=== PATIENT | male | born 1985 | race Caucasian/White ===

== ENCOUNTER → 2021-12-08 12:51 | Outpatient (CLI) | payer BC, SELFPAY ==
[2021-12-09 16:27] LABS: H. pylori Breath Test Negative (Negative)
== END ==
PROVIDERS: PCP Physician Assistant; Visit Provider Nurse Practitioner Obstetrics & Gynecology
DX: R10.13 Epigastric pain (principal); Z31.41 Encounter for fertility testing
CPT/HCPCS: 83013

== ENCOUNTER 2022-10-02 08:35 | Day surgery (SDC) | payer BC, SELFPAY ==
[2022-09-30 10:12] VITALS: BMI 25.7
[2022-10-02 08:49] VITALS: BP 128/68; PULSE 75; RESP 18; TEMP 36.4; O2SAT 99
[2022-10-02 08:56] VITALS: BP 105/62; PULSE 75; RESP 16; TEMP 36.1; O2SAT 98
[2022-10-02 09:17] VITALS: O2SAT 99
--- NOTE | 2022-10-02 09:56 | HMH.SCOPE ---
Procedure: Date: 10/02/22 Patient Date of :: 1985 Procedure Performed:: Total colonoscopy with polypectomy using snare Indications:: Patient is a 37-year-old male referred for initial screening colonoscopy. His mother was diagnosed with colon cancer recently at age 58. Performing Provider:: Tolu Guzman MD Referring Provider:: Chelita Alvarado Sedation:: MAC sedation Procedure:: Patient history was obtained and appropriate physical examination was performed. Patient's medications and allergies were reviewed. Informed consent was obtained after explaining the benefits, alternatives, and risks of the procedure including, but not limited to, bleeding, perforation, missed lesions, and adverse reaction to anesthesia medications. Patient was transported to endoscopy procedure room. Patient was connected to monitoring devices. Throughout the procedure the patient's blood pressure, pulse, and oxygen saturations were monitored continuously. Patient identification and planned procedure were verified by the staff. Patient was positioned in lateral decubitus position. Digital anorectal exam was performed. Variable stiffness Olympus colonoscope was inserted and advanced under direct visualization to the cecum. Adequacy of the colonic preparation was noted. The colonoscope was advanced a short distance into the terminal ileum. The colonoscope was then slowly withdrawn while carefully examining the color, texture, anatomy, and integrity of the mucosoa circumferentially. Within the rectum retroflexion was performed. Colonoscope was then withdrawn. Findings:: Colonic preparation was fair as there was some particulate stool adherent to the colon particularly the right colon. At 50 cm from the anal verge there was a visible suture likely from previous pancreatic surgery. There were a couple of polyps at this location which were removed with cold cutting snare. These may be inflammatory. He had very rare diverticuli in the left colon. There were a couple of polyps at the rectosigmoid region removed with cold snare. Impression: Fair preparation with some adherent stool to the right colon Rare diverticuli Visible suture at 50 cm with a couple of polyps Rectosigmoid hyperplastic appearing polyps Recommendations:: Follow-up colonoscopy pending pathology. If any adenomatous component likely 3 years. If not likely would recommend 5-year recheck given the suboptimal preparation and family history. Complications:: None immediately apparent Estimated blood obtained (mL): 1
[2022-10-02 10:06] VITALS: BP 102/62; PULSE 98; RESP 17; O2SAT 99
[2022-10-02 10:16] VITALS: BP 107/79; PULSE 83; RESP 16; O2SAT 100
[2022-10-02 10:26] VITALS: BP 111/64; PULSE 76; RESP 17; O2SAT 100
== END 2022-10-02 10:26 | disposition home or self-care (01) ==
PROVIDERS: PCP Physician Assistant; Visit Provider Surgery
PROC: 0DJD8ZZ Inspection of Lower Intestinal Tract, Via Natural or Artificial Opening Endoscopic (ICD-10-PCS; CPT 45385; principal; 2022-10-02 09:30)
DX: Z12.11 Encounter for screening for malignant neoplasm of colon (principal); Z80.0 Family history of malignant neoplasm of digestive organs; D12.4 Benign neoplasm of descending colon
CPT/HCPCS: 45385

== ENCOUNTER → 2023-01-14 14:33 | Outpatient (CLI) | payer BC, SELFPAY ==
[2023-01-14 15:26] LABS: Alanine Aminotransferase 44 U/L (12-78); Albumin Level 4.7 g/dl (3.5-5.0); Alkaline Phosphatase 55 U/L (38-126); Amylase 46 U/L (30-110); Anion Gap 11.8 mEq/L (5-15); Aspartate Amino Transferase 31 U/L (17-59); Bilirubin,Total 0.7 mg/dl (0.2-1.3); Blood Urea Nitrogen 14 mg/dl (9-20); Calcium 9.2 mg/dl (8.4-10.2); Carbon Dioxide 32 mmol/L (22.0-30.0); Chloride 101 mmol/L (98-107); Estimated Glomerular Filt Rate 76 ml/min (>60); GFR (African American) 92 ML/MIN (>60); Globulin 2.4 g/dL (1.3-3.2); Glucose 93 mg/dl (74-100); Lipase 124 U/L (23-300); Potassium 4.8 mmoL/L (3.5-5.1); Sodium 140 mmol/L (136-145); Total Protein,Serum 7.1 g/dl (6.3-8.2)
== END ==
PROVIDERS: Visit Provider Surgery
DX: R10.9 Unspecified abdominal pain (principal)
CPT/HCPCS: 36415; 80053; 82150; 83690

== ENCOUNTER 2023-07-08 13:29 | Emergency (ER) | payer BC, SELFPAY ==
--- NOTE | 2023-07-08 14:06 | EXP.UTC ---
Discharge Plan Disposition Patient Disposition: Home, Self-Care Condition: Good Prescriptions Prescriptions: New oseltamivir [Tamiflu] 75 mg capsule 75 mg PO BID Qty: 10 0RF ondansetron 4 mg Tablet,Disintegrating 4 mg PO Q8H PRN (Reason: Nausea) Qty: 12 0RF Referrals Follow up/Referrals: Yusuf Schulz MD [Primary Care Provider] - See instructions Activity Restrictions/Add. Instructions Additional Instructions/Restrictions: Drink plenty of fluids. Take tylenol or ibuprofen for pain or fever. Take the medications as directed. Follow up with your regular doctor. GO TO THE ER FOR ANY WORSENING SYMPTOMS Clinical Impressions Clinical Impression: Acute viral syndrome Stand Alone Forms Stand Alone Forms: Work/School Release Instructions Patient Instructions: DI for Influenza -- Adult, DI for Viral Syndrome, Oseltamivir Discharge ED Provider: Joaquim Rodriguez [facility] General Stated complaint: diarrhea,fever,chills Time Seen by Provider: 07/08/23 14:06 History of Present Illness Provider Complaint: He states that for the past 1 day he has had fever, chills, body aches, and malaise. He has had nausea and diarrhea but no vomiting. Related Data Previous Rx's Medication Instructions Recorded ondansetron 4 mg disintegrating 4 mg PO Q8H PRN Nausea #12 tabs 07/08/23 tablet oseltamivir 75 mg capsule (Tamiflu) 75 mg PO BID #10 caps 07/08/23 Allergies Allergy/AdvReac Type Severity Reaction Status Date / Time diphenhydramine AdvReac Verified 01/14/23 14:23 [From Benadryl] [facility] Disclaimer: The information contained in this section may have been updated after the patient was seen, as this information can be updated by other users. Medical History (Updated 07/08/23 @ 14:20 by Joaquim Rodriguez APRN) History of COVID-19 Surgical History (Updated 01/14/23 @ 14:23 by LIBRADO Loya) History of colonoscopy History of partial pancreatectomy Family History Mother Colon cancer Social History Smoking Status: Never smoker alcohol intake: current current occupational status: employed Travel in the last 8 weeks: None ROS Obtained: Yes All systems reviewed & no additional complaints except as documented Constitutional Constitutional: Reports chills and Reports fever(s) Eyes Eyes: Denies eye discharge ENT Ears, Nose, Mouth, and Throat: Reports as per HPI Cardiovascular Cardiovascular: Denies chest pain Respiratory Respiratory: Denies chest congestion and Reports cough Gastrointestinal Gastrointestingal: Reports nausea; Denies abdominal pain, constipation, cramping, diarrhea or vomiting Musculoskeletal Musculoskeletal: Denies arthralgias Integumentary/Breasts Skin/Breast: Denies rash Neurologic Neurologic: Denies paresthesias Physical Exam General General appearance: alert and in no apparent distress Head Head exam: atraumatic, normocephalic and normal inspection Eye Eye exam: Present normal appearance, PERRL and EOMI ENT ENT exam: Present normal exam, normal oropharynx, mucous membranes moist, TM's normal bilaterally and normal external ear exam Neck Neck exam: Present normal inspection, full ROM and trachea midline; Absent meningismus or lymphadenopathy Chest Chest inspection: Present normal inspection and symmetric chest wall rise; Absent tenderness Respiratory Respiratory exam: Present normal lung sounds bilaterally; Absent respiratory distress Cardiovascular Cardiovascular exam: Present regular rate and normal rhythm; Absent JVD Abdominal Exam Abdominal exam: Present soft and normal bowel sounds; Absent distention, tenderness or guarding Extremities Exam Extremities exam: Present normal inspection, full ROM and normal capillary refill; Absent calf tenderness Back Exam Back exam: Present normal inspection; Absent tender
[2023-07-08 14:10] VITALS: BP 128/73; PULSE 85; RESP 20; TEMP 37.3; O2SAT 97; BMI 25.8
[2023-07-08 14:19] LABS: UTC Influenza A Antigen Negative (Negative); UTC Influenza B Antigen Negative (Negative)
[2023-07-08 14:20] VITALS: BP 128/73; PULSE 85; RESP 20; TEMP 37.3; O2SAT 97
== END 2023-07-08 14:24 | disposition home or self-care (01) ==
PROVIDERS: Emergency Provider Nurse Practitioner Family; PCP Family Medicine
DX: R05.9 Cough, unspecified (principal); R19.7 Diarrhea, unspecified; R50.9 Fever, unspecified; R11.0 Nausea; R53.81 Other malaise; M79.18 Myalgia, other site; B34.9 Viral infection, unspecified
CPT/HCPCS: 87804; 99204; 99212; G0463

== ENCOUNTER 2024-03-07 09:32 | Emergency (ER) | payer BC, SELFPAY ==
[2024-03-07 10:35] VITALS: BP 121/74; PULSE 81; RESP 20; TEMP 37.4; O2SAT 98; BMI 25.8
--- NOTE | 2024-03-07 10:45 | ED_ITS ---
Discharge Plan Disposition Patient Disposition: Home, Self-Care Condition: Good Prescriptions Prescriptions: New methylprednisolone 4 mg Tablets,Dose Pack 4 mg PO DIRECTED 6 Days Qty: 21 0RF Rx Instructions: Take 1 pack as directed for 6 days amoxicillin-pot clavulanate 875-125 mg Tablet 1 tab PO Q12H Qty: 20 0RF Referrals Follow up/Referrals: Provider,Referral, MD [Primary Care Provider] - See instructions Activity Restrictions/Add. Instructions Additional Instructions/Restrictions: Drink plenty of fluids. Take tylenol or ibuprofen for pain or fever. Take the medications as directed. Follow up with your regular doctor. GO TO THE ER FOR ANY WORSENING SYMPTOMS Clinical Impressions Clinical Impression: Otitis media Instructions Patient Instructions: Middle Ear Infection Print Language Print Language: Guatemalan Discharge ED Provider: Joaquim Rodriguez [facility] General Stated complaint: congestion, ear pain Time Seen by Provider: 03/07/24 10:36 Related Data Previous Rx's ?Medication ?Instructions ?Recorded amoxicillin 875 mg-potassium 1 tab PO Q12H #20 tabs 03/07/24 clavulanate 125 mg tablet methylprednisolone 4 mg tablets in 4 mg PO DIRECTED 6 days #21 tabs 03/07/24 a dose pack Allergies Allergy/AdvReac Type Severity Reaction Status Date / Time diphenhydramine AdvReac Verified 01/14/23 14:23 [From Benadryl] [facility] Disclaimer: The information contained in this section may have been updated after the patient was seen, as this information can be updated by other users. Medical History (Updated 03/07/24 @ 10:48 by Joaquim Rodriguez APRN) History of COVID-19 Surgical History (Updated 01/14/23 @ 14:23 by LIBRADO Loya) History of colonoscopy History of partial pancreatectomy Family History Mother Colon cancer Social History Smoking Status: Never smoker alcohol intake: current current occupational status: employed Travel in the last 8 weeks: None ROS Obtained: Yes All systems reviewed & no additional complaints except as documented Constitutional Constitutional: Denies chills, Reports fever(s) and Reports poor appetite Eyes Eyes: Denies eye discharge ENT Ears, Nose, Mouth, and Throat: Denies ear discharge, Reports otalgia, Denies hearing loss, Denies sinus pain and Reports sore throat Cardiovascular Cardiovascular: Denies chest pain and Denies dyspnea Respiratory Respiratory: Denies chest congestion, Reports cough and Denies dyspnea Gastrointestinal Gastrointestingal: Denies abdominal pain, diarrhea, nausea or vomiting Musculoskeletal Musculoskeletal: Denies arthralgias Integumentary/Breasts Skin/Breast: Denies rash Physical Exam General General appearance: alert and in no apparent distress Head Head exam: atraumatic, normocephalic and normal inspection Eye Eye exam: Present normal appearance; Absent PERRL or EOMI ENT ENT exam: Present mucous membranes moist and normal external ear exam Expanded ENT Exam TM/Canal exam: Bilateral TM: erythema, bulging and effusion Nose exam: Absent sinus tenderness Nasal speculum exam: Bilateral: normal Mouth exam: Present normal external inspection and other; Absent drooling Teeth exam: Present normal inspection Throat exam: Present tonsillar erythema and tonsillomegaly Neck Neck exam: Present normal inspection, full ROM and trachea midline; Absent tenderness, meningismus or lymphadenopathy Chest Chest inspection: Present normal inspection and symmetric chest wall rise; Absent tenderness Respiratory Respiratory exam: Present normal lung sounds bilaterally; Absent respiratory distress, wheezes or stridor Cardiovascular Cardiovascular exam: Present regular rate, normal rhythm and normal heart sounds; Absent tachycardia or irregular rhythm Abdominal Exam Abdominal exam: Present soft and normal bowel sounds; Absent distention, tenderness, guarding, rebound or rigidity Extremities Exam Extremities exam: Present normal inspection and normal capillary refill; Absent tenderness, joint swelling or calf tenderness Back Exam Back exam: Present normal inspection and full ROM; Absent tenderness, CVA tenderness (R) or CVA tenderness (L) Neurological Exam Neurological exam: Present alert, oriented X3, CN II-XII intact, normal gait and reflexes normal; Absent motor sensory deficit Psychiatric Psychiatric exam: Present normal affect and normal mood Skin Skin exam: Present warm, dry, intact and normal color Lymphatic Lymphatic Findings: no adenopathy Medical Decision Making Medical Records Medical records reviewed: No I reviewed the patient's medical records. Shyam Inquiry Pt receiving controlled substance: No
[2024-03-07 10:56] VITALS: BP 121/74; PULSE 81; RESP 20; TEMP 37.4; O2SAT 98
== END 2024-03-07 11:00 | disposition home or self-care (01) ==
PROVIDERS: Emergency Provider Nurse Practitioner Family
DX: H66.93 Otitis media, unspecified, bilateral (principal)
CPT/HCPCS: 99212; 99214; G0463

== ENCOUNTER 2024-08-15 11:16 | Observation (INO) | payer BC, SELFPAY ==
[2024-08-15] VITALS (15 sets, daily range): BP systolic 112–128; BP diastolic 66–108; PULSE 48–90; RESP 14–18; TEMP 36.5–36.8; O2SAT 97–100; BMI 25.8
--- NOTE | 2024-08-15 11:35 | XR_ITS ---
FINAL REPORT CLINICAL HISTORY: Epigastric pain COMPARISON: None FINDINGS: The heart size is normal. The mediastinum is normal. There is no focal infiltrate or edema. There are scattered calcified granulomas. There are no pleural effusions. There is no pneumothorax. There is no osseous abnormality. IMPRESSION: No acute cardiopulmonary process Reviewed, Interpreted and Dictated by Michael Knutson MD Transcribed by Jaky Carlson Authenticated and [facility]
--- NOTE | 2024-08-15 11:39 | PC.NURSE ---
XR AT BEDSIDE
[2024-08-15 11:43] LABS: Basophils # 0.1 K/mm3 (0-0.2); Basophils % 1.5 % (0.1-2.0); Eosinophils # 0.1 K/mm3 (0.0-0.4); Eosinophils % 2.4 % (0.1-12.0); Hematocrit 40.9 % (42.0-52.0); Hemoglobin 14.6 g/dL (14.1-18.0); Lymphocytes # 1.6 K/mm3 (0.7-4.5); Lymphocytes % 29.5 % (10-50); Mean Corpuscular HGB Conc 35.7 g/dL (31.8-35.4); Mean Corpuscular Hemoglobin 31.3 pg (27.0-31.2); Mean Corpuscular Volume 87.6 fl (80-94); Mean Platelet Volume 10.3 fl (7.4-10.4); Monocytes # 0.4 K/mm3 (0.1-1.0); Monocytes % 6.5 % (1.7-9.3); Neutrophils # 3.2 K/mm3 (1.8-7.8); Neutrophils % 59.9 % (37.0-80.0); Platelet Count 235 K/mm3 (142-424); Red Blood Count 4.67 M/mm3 (4.60-6.20); Red Cell Distribution Width 12.1 % (11.5-17.5); White Blood Count 5.4 K/mm3 (4.8-10.8)
--- NOTE | 2024-08-15 11:43 | PC.NURSE ---
DR DELGADO AT BEDSIDE
[2024-08-15 11:44] LABS: Albumin Level 4.8 g/dl (3.5-5.0); Chloride 103 mmol/L (98-107); Potassium 4.5 mmoL/L (3.5-5.1); Sodium 139 mmol/L (136-145)
[2024-08-15 11:46] LABS: Alanine Aminotransferase 35 U/L (12-78); Alkaline Phosphatase 51 U/L (38-126); Anion Gap 12.5 mEq/L (5-15); Aspartate Amino Transferase 37 U/L (17-59); Bilirubin,Total 0.7 mg/dl (0.2-1.3); Blood Urea Nitrogen 12 mg/dl (9-20); Carbon Dioxide 28 mmol/L (22.0-30.0); Creatinine Clearance Estimated 117 mL/min (50-200); Estimated Glomerular Filt Rate 84 ml/min (>60); GFR (African American) 102 ML/MIN (>60)
[2024-08-15 11:47] LABS: Albumin/Globulin Ratio 1.9 (1.1-1.8); Calcium 9.4 mg/dl (8.4-10.2); Globulin 2.5 g/dL (1.3-3.2); Glucose 90 mg/dl (74-100); Lipase 113 U/L (23-300); Total Protein,Serum 7.3 g/dl (6.3-8.2)
[2024-08-15] MEDS: BELLADONNA ALKALOIDS 60 ML ML PO ×2 (11:59→23:29)
[2024-08-15] MEDS: SODIUM CHLORIDE 0.9% 10ML VIAL 10 ML IV ×2 (11:59→20:18)
[2024-08-15] MEDS: MORPHINE 2MG/ML SYRINGE 2 MG IV ×2 (11:59→20:28)
[2024-08-15] MEDS: PANTOPRAZOLE 40MG VIAL 40 MG IV ×2 (12:00→21:00)
--- NOTE | 2024-08-15 12:16 | ED_ITS ---
Discharge Plan Disposition Chief Complaint: Abdominal Pain Prescriptions Prescriptions: No Action methylprednisolone 4 mg Tablets,Dose Pack 4 mg PO DIRECTED 6 Days Qty: 21 0RF Rx Instructions: Take 1 pack as directed for 6 days amoxicillin-pot clavulanate 875-125 mg Tablet 1 tab PO Q12H Qty: 20 0RF Referrals Follow up/Referrals: Yusuf Schulz MD [Primary Care Provider] - See instructions Clinical Impressions Clinical Impression: Epigastric abdominal pain Instructions Patient Instructions: DI for Acute Abdominal Pain Print Language Print Language: Luxembourgish Discharge ED Provider: Marry Bautista General Adult HPI General Chief complaint: Abdominal Pain Stated complaint: abd pain Time Seen by Provider: 08/15/24 11:27 Mode of Arrival: Ambulatory Source of Information: Patient Limitations: No Limitations Description of Symptoms (Recalled from ER Triage Doc. by RN): PT WITH HX OF FREQUENT EPISODES OF ABDOMINAL PAIN, THAT TYPICALLY RESOLVE. PRESENTS FOR INCREASED PAIN FOR A FEW DAYS, PAIN MOSTLY UPPER EPIGASTRIC. REPORTS BRIGHT RED BLOODY SALIVA ON WEDNESDAY, RESOLVED. DOES ACKNOWLEDGE DARK STOOL. OCCASIONAL DRINKER, 2 BEERS History of Present Illness HPI narrative: Patient is a 39-year-old male presenting with upper abdominal pain. Patient states his pain started on Wednesday and when he woke up that morning his mouth felt like it was filling up with saliva and when he spit it out, it had bright red blood. He did not experience any bloody vomit or further blood. He said his pain had improved yesterday but worsened again today. Patient states he has no known medical problems and was prescribed Protonix that he takes sometimes but has not taken recently. Patient is unsure if he had black or dark stools. Patient had GI scoping performed approximately 1 year ago for similar problem. Patient states he drinks approximately 2 beers a day but not necessarily every day, denies smoking/tobacco use, alternative drug use. Patient states he has a history of partial pancreatectomy due to a baseball trauma. Patient denies shortness of breath, chest pain, back pain. Related Data Previous Rx's ?Medication ?Instructions ?Recorded amoxicillin 875 mg-potassium 1 tab PO Q12H #20 tabs 03/07/24 clavulanate 125 mg tablet methylprednisolone 4 mg tablets in 4 mg PO DIRECTED 6 days #21 tabs 03/07/24 a dose pack Allergies Allergy/AdvReac Type Severity Reaction Status Date / Time diphenhydramine (From AdvReac Verified 01/14/23 14:23 Benadryl) [facility] Disclaimer: The information contained in this section may have been updated after the patient was seen, as this information can be updated by other users. Medical History (Updated 08/15/24 @ 14:39 by Marry Bautista MD) History of COVID-19 Surgical History (Updated 01/14/23 @ 14:23 by LIBRADO Loya) History of colonoscopy History of partial pancreatectomy Family History Mother Colon cancer Social History Smoking Status: Never smoker alcohol intake: current current occupational status: employed Travel in the last 8 weeks: None Have you lived/traveled outside US in past 30 days?: No Contact w/someone who lives/traveled outside US past 30 days?: No Exposure to someone with infectious disease in past 14 days?: No Do you have a fever (greater than 100.4 F or 38 C)?: No Have you tested positive for COVID-19: No Exposed to someone with COVID-19 in past 14 days?: No Do you have a sore throat?: No Do you have a cough?: No Do you have any weakness?: No Do you have any diarrhea?: No Are you experiencing any unusual bleeding?: No Do you have any muscle aches/pain?: No Do you have any abdominal pain?: Yes Are you experiencing loss of taste or smell?: No Other Medical History Have you received the Flu Vaccine for this season: No Have you received the Pneumonia Vaccine: No ROS Obtained: Yes All systems reviewed & no additional complaints except as documented Physical Exam General General appearance: alert and in no apparent distress Head Head exam: atraumatic, normocephalic and normal inspection Eye Eye exam: Present normal appearance, PERRL and EOMI ENT ENT exam: Present normal exam, normal oropharynx, mucous membranes moist and normal external ear exam Neck Neck exam: Present normal inspection, full ROM and trachea midline; Absent meningismus or lymphadenopathy Chest Chest inspection: Present normal inspection and symmetric chest wall rise; Absent tenderness Respiratory Respiratory exam: Present normal lung sounds bilaterally; Absent respiratory distress Cardiovascular Cardiovascular exam: Present regular rate and normal rhythm; Absent JVD Abdominal Exam Abdominal exam: Present soft and tenderness; Absent distention or guarding Abdominal tenderness: Present epigastrium Extremities Exam Extremities exam: Present normal inspection, full ROM and normal capillary refill Neurological Exam Neurological exam: Present alert and oriented X3 Psychiatric Psychiatric exam: Present normal affect and normal mood Skin Skin exam: Present warm, dry, intact and normal color Lymphatic Lymphatic Findings: no adenopathy Medical Decision Making Medical Records Medical records reviewed: Yes I reviewed the patient's medical records. Screening: Per USPSTF and CDC recommendations, given the prevalence of disease in our region, it is our hospital?s policy to screen for HIV and viral Hepatitis for all patients aged 18 and over and those with ongoing risk factors. Shyam Inquiry Pt receiving controlled substance: No Vital Signs: 08/15/24 11:17 08/15/24 11:24 08/15/24 11:30 Temperature 98.0 F Temperature Source Oral Pulse Rate 90 71 Pulse Rate [Radial] 78 Respiratory Rate 18 Blood Pressure 128/85 125/75 Blood Pressure [Right Arm] 128/85 Blood Pressure Mean [Right Arm] 99 Blood Pressure Source [Right Arm] Automatic Cuff Blood Pressure Position [Right Arm] Sitting 02 Sat by Pulse Oximetry 100 100 99 Oxygen Delivery Method Room Air Room Air Room Air 08/15/24 12:00 08/15/24 12:30 08/15/24 13:00 Temperature Temperature Source Pulse Rate 61 54 L 51 L Pulse Rate [Radial] Respiratory Rate Blood Pressure 122/66 124/75 117/80 Blood Pressure [Right Arm] Blood Pressure Mean [Right Arm] Blood Pressure Source [Right Arm] Blood Pressure Position [Right Arm] 02 Sat by Pulse Oximetry 100 97 98 Oxygen Delivery Method Room Air Room Air Room Air 08/15/24 13:30 08/15/24 14:00 08/15/24 14:30 Temperature Temperature Source Pulse Rate 57 L 49 L 58 L Pulse Rate [Radial] Respiratory Rate Blood Pressure 114/67 115/72 118/69 Blood Pressure [Right Arm] Blood Pressure Mean [Right Arm] Blood Pressure Source [Right Arm] Blood Pressure Position [Right Arm] 02 Sat by Pulse Oximetry 100 100 98 Oxygen Delivery Method Room Air Room Air Room Air 08/15/24 15:00 Temperature Temperature Source Pulse Rate 48 L Pulse Rate [Radial] Respiratory Rate Blood Pressure 114/72 Blood Pressure [Right Arm] Blood Pressure Mean [Right Arm] Blood Pressure Source [Right Arm] Blood Pressure Position [Right Arm] 02 Sat by Pulse Oximetry 97 Oxygen Delivery Method Room Air Lab Data Lab results reviewed: Yes I reviewed the patient's lab results. Lab Results 08/15/24 11:35: WBC 5.4, RBC 4.67, Hgb 14.6, Hct 40.9 L, MCV 87.6, MCH 31.3 H, M CHC 35.7 H, RDW 12.1, Plt Count 235, MPV 10.3, Neut % (Auto) 59.9, Lymph % (Auto) 29.5, [place] % (Auto) 6.5, Eos % (Auto) 2.4, Baso % (Auto) 1.5, Neut # (Auto) 3.2, Lymph # (Auto) 1.6, [place] # (Auto) 0.4, Eos # (Auto) 0.1, Baso # (Auto) 0.1, Sodium 139, Potassium 4.5, Chloride 103, Carbon Dioxide 28, Anion Gap 12.5, BUN 12, Creatinine 1.00, Estimated Creat Clear 117, Estimated GFR 84, Est GFR ( Amer) 102, Glucose 90, Calcium 9.4, Total Bilirubin 0.7, AST 37, ALT 35, Alkaline Phosphatase 51, Total Protein 7.3, Albumin 4.8, Globulin 2.5, Albumin/Globulin Ratio 1.9 H, Lipase 113, HCV Ab CANDE w/Rflx PCR Qn Negative, HIV Ag/Ab Combo Qual Negative 08/15/24 11:35 08/15/24 11:35 Orders (Tests/Meds): ED MEDICATIONS Generic Name Dose Route Start Last Admin Trade Name Freq PRN Reason Stop Dose Admin Sodium Chloride 10 ml 08/15/24 11:47 08/15/24 11:59 Sodium Chloride 0.9% 10ml Vial IV 09/14/24 11:46 10 ml NEEDED PRN Administration dilute protonix Discontinued Medications Generic Name Dose Route Start Last Admin Trade Name Freq PRN Reason Stop Dose Admin Belladonna Alkaloids 60 ml 08/15/24 11:47 08/15/24 11:59 Belladonna Alkaloids 60 Ml Ml PO 08/15/24 11:48 60 ml ONCE ONE Administration Morphine Sulfate 2 mg 08/15/24 11:47 08/15/24 11:59 Morphine 2mg/Ml Syringe IV 08/15/24 11:48 2 mg ONCE ONE Administration Morphine Sulfate 4 mg 08/15/24 14:09 08/15/24 14:12 Morphine 4mg/Ml Syringe IV 08/15/24 14:10 4 mg ONCE ONE Administration Pantoprazole Sodium 40 mg 08/15/24 11:47 08/15/24 12:00 Pantoprazole 40mg Vial IV 08/15/24 11:48 40 mg ONCE ONE Administration ORDERS Category Date Time Status CXR --portable [XR chest portable] Stat Exams 08/15/24 11:35 Completed CBC w/Auto Diff [Complete Blood Count Auto Diff] Stat Lab 08/15/24 11:35 Completed CMP [Comprehensive Metabolic Panel] Stat Lab 08/15/24 11:35 Completed HIV Combo Stat Lab 08/15/24 11:35 Completed Hepatitis C Ab Qual. W/ RFX Stat Lab 08/15/24 11:35 Completed Lipase Stat Lab 08/15/24 11:35 Completed Medical Decision Narrative: In summary, this is a 39-year-old male presenting with epigastric pain. Differential diagnosis includes but is not limited to, PUD, esophageal varices, Elena-Hamilton tear, hemoptysis, among others. Based on patient's history and physical, PUD is less likely at this time. Patient has not been consistently taking his Protonix and drinks alcohol daily. Patient's colonoscopy was performed in 2022 due to family history of colon cancer. No evidence of patient being seen by gastroenterology at [facility]. Patient evaluated with CBC, CMP, lipase, CXR. Symptoms managed with Protonix, GI cocktail, morphine. Labs negative for leukocytosis, anemia, thrombocytopenia. CMP nonactionable. Lipase 113. CXR personally reviewed by me and negative for acute consolidation, pleural effusion, widened mediastinum. On reevaluation, patient continues to have severe pain when trying to sit upright. His nausea has otherwise improved. An additional round of IV morphine given. I discussed patient's case with Dr. Pearson he felt he could perform an EGD on a nonemergent basis either inpatient or outpatient but given patient's continued pain control requirements, he agreed that patient may benefit from a short admission. I discussed the patient's case with the hospitalist on duty who was in agreement to admit the patient for pain control and probable EGD. Patient and family in agreement with this plan. Patient remained hemodynamically stable while in the emergency department. Marry Bautista MD PGY-3, Emergency Medicine Critical Care Critical Care Time Critical Care Time: No
[2024-08-15 12:28] LABS: HIV Combo NEGATIVE (Negative)
[2024-08-15 12:36] LABS: Hepatitis C Ab Qual. W/ RFX NEGATIVE (Negative)
--- NOTE | 2024-08-15 13:00 | PC.NURSE ---
PT AMBULATORY TO BR
--- NOTE | 2024-08-15 13:31 | PC.NURSE ---
ROUNDED ON PT, WATER PROVIDED. AT BEDSIDE. NO FURTHER NEEDS AT THIS [facility]
--- NOTE | 2024-08-15 14:00 | PC.NURSE ---
DR DELGADO AT BEDSIDE TO UPDATE PT AND FAMILY
[2024-08-15] MEDS: MORPHINE 4MG/ML SYRINGE 4 MG IV (14:12)
--- NOTE | 2024-08-15 14:16 | PC.NURSE ---
PT MEDICATED PER EMAR, WARM BLANKET PROVIDED. NO FURTHER NEEDS AT THIS TIME. CALL LIGHT WITHIN REACH
--- NOTE | 2024-08-15 14:32 | PC.NURSE ---
DR DELGADO SPEAKING WITH DR CARCAMO
--- NOTE | 2024-08-15 16:00 | PC.NURSE ---
joss house keeper notified of admission
--- NOTE | 2024-08-15 16:19 | PC.NURSE ---
REPORT CALLED TO DOUG PERKINS
--- NOTE | 2024-08-15 16:35 | PC.NURSE ---
arrived by w/c from ED
--- NOTE | 2024-08-15 18:49 | EXP.HP ---
History of Present Illness *Admission Date: 08/15/24 *Reason for visit:: Hemoptysis, epigastric pain *History of present illness: Darius Bryan is a 39-year-old male with no significant medical history who presents with worsening epigastric pain, and an episode of hemoptysis at home. He states he has had epigastric pain for about 3 days. He states he has had this before but never this severe. He also endorses 1-2 episodes hemoptysis at home. Endorses occasional dark/bloody stools, constipation. Patient states he drinks alcohol 4 times a week, several beers at a time. Denies NSAIDs, smoking history. Does have a history of acid reflux that he uses Tums for. Workup in the ED significant for hemoglobin 14.6, BUN 12, with vital signs stable. However, patient continues to have significant epigastric pain and spite of GI cocktail, opioid pain control. GI was consulted by the ED who recommended inpatient EGD. Case discussed with the ED provider and decision was made to admit patient for suspected upper GI bleed. [facility] Disclaimer: The information contained in this section may have been updated after the patient was seen, as this information can be updated by other users. Medical History (Updated 08/15/24 @ 14:39 by Marry Bautista MD) History of COVID-19 Surgical History (Updated 01/14/23 @ 14:23 by LIBRADO Loya) History of colonoscopy History of partial pancreatectomy Family History Mother Colon cancer Social History Smoking Status: Never smoker alcohol intake: current current occupational status: employed Travel in the last 8 weeks: None Have you lived/traveled outside US in past 30 days?: No Contact w/someone who lives/traveled outside US past 30 days?: No Exposure to someone with infectious disease in past 14 days?: No Do you have a fever (greater than 100.4 F or 38 C)?: No Have you tested positive for COVID-19: No Exposed to someone with COVID-19 in past 14 days?: No Do you have a sore throat?: No Do you have a cough?: No Do you have any weakness?: No Do you have any diarrhea?: No Are you experiencing any unusual bleeding?: No Do you have any muscle aches/pain?: No Do you have any abdominal pain?: Yes Are you experiencing loss of taste or smell?: No Other Medical History Have you received the Flu Vaccine for this season: No Have you received the Pneumonia Vaccine: No Meds Home Medications and Allergies New Prescriptions to Start Prescriptions: Allergies Allergy/AdvReac Type Severity Reaction Status Date / Time diphenhydramine (From AdvReac Verified 01/14/23 14:23 Benadryl) Exam Data for Last 24 hours Vital signs and Labs for Last 24 Hours: Temp Pulse Resp BP Pulse Ox O2 Del Method 98.3 F 53 L 17 115/74 97 Room Air 08/15/24 16:41 08/15/24 16:41 08/15/24 16:41 08/15/24 16:41 08/15/24 16:41 08/15/24 16:41 Laboratory Results - last 24 hr 08/15/24 11:35: WBC 5.4, RBC 4.67, Hgb 14.6, Hct 40.9 L, MCV 87.6, MCH 31.3 H, MCHC 35.7 H, RDW 12.1, Plt Count 235, MPV 10.3, Neut % (Auto) 59.9, Lymph % (Auto) 29.5, [place] % (Auto) 6.5, Eos % (Auto) 2.4, Baso % (Auto) 1.5, Neut # (Auto) 3.2, Lymph # (Auto) 1.6, [place]nn # (Auto) 0.4, Eos # (Auto) 0.1, Baso # (Auto) 0.1, Sodium 139, Potassium 4.5, Chloride 103, Carbon Dioxide 28, Anion Gap 12.5, BUN 12, Creatinine 1.00, Estimated Creat Clear 117, Estimated GFR 84, Est GFR ( Amer) 102, Glucose 90, Calcium 9.4, Total Bilirubin 0.7, AST 37, ALT 35, Alkaline Phosphatase 51, Total Protein 7.3, Albumin 4.8, Globulin 2.5, Albumin/Globulin Ratio 1.9 H, Lipase 113, HCV Ab CANDE w/Rflx PCR Qn Negative, HIV Ag/Ab Combo Qual Negative I & O for Last 24 hours: Intake & Output 08/12/24 08/13/24 08/14/24 08/15/24 23:59 23:59 23:59 23:59 Weight 81.732 kg Constitutional Constitutional: no acute distress *Routine HEENT Exam Head: Present normocephalic Eye: Present EOMI and PERRL ENT: Present mucous membranes moist *Routine Neck Exam Neck: Present supple; Absent lymphadenopathy *Routine Respiratory Exam Respiratory: Present CTA bilaterally *Routine Cardiovascular Exam Cardiovascular: Present RRR *Routine Abdominal Exam Abdominal: Present soft and normoactive bowel sounds; Absent tenderness Comments: Tenderness to palpation in the epigastric region with no peritoneal signs. *Routine Rectal Exam Rectal:: deferred *Routine Genitalia Exam Genitalia:: deferred *Routine Extremities Exam Extremities: Absent cyanosis, clubbing or edema *Routine Skin Exam Skin: Present warm; Absent rash *Routine Neurological Exam Neurological: Present alert and oriented X3 Assessment and Plan *Assessment and plan (1) Epigastric abdominal pain: Status: Acute Category: Medical Code(s): R10.13 - Epigastric pain Plan Darius Bryan is a 39-year-old male with no significant medical history who presents with worsening epigastric pain, and an episode of hemoptysis at home. He states he has had epigastric pain for about 3 days. He states he has had this before but never this severe. He also endorses 1-2 episodes hemoptysis at home. Endorses occasional dark/bloody stools, constipation. Patient states he drinks alcohol 4 times a week, several beers at a time. Denies NSAIDs, smoking history. Does have a history of acid reflux that he uses Tums for. Workup in the ED significant for hemoglobin 14.6, BUN 12, with vital signs stable. However, patient continues to have significant epigastric pain and spite of GI cocktail, opioid pain control. GI was consulted by the ED who recommended inpatient EGD. Case discussed with the ED provider and decision was made to admit patient for suspected upper GI bleed. #Epigastric pain #Hemoptysis #Suspected PUD ? Longstanding history of drinking, 4 times a week several beers. 3 days of epigastric pain, 2 episodes of hemoptysis. ? Hemoglobin 14.6, BUN 12, vital signs all stable at this time. Lipase 113. ? GI consulted, recommended n.p.o. overnight for EGD in the morning. ? IV Protonix 40 mg twice daily, sucralfate daily. ? LR at 75 mL/h for now. ? Follow-up CT abdomen/pelvis to further evaluate epigastric pain. ? Follow-up coagulation factors, though unlikely to be cirrhosis at this time. Full code DVT prophylaxis: Patient is ambulatory
--- NOTE | 2024-08-15 18:52 | PC.NURSE ---
Patient new admit for abdominal pain, a&ox4 and vss.
[2024-08-15] MEDS: LACTATED RINGERS 1000ML 1,000 ML 75 ML IV (20:04)
[2024-08-15] MEDS: SUCRALFATE 1GM TABLET 1 GM PO (20:05)
--- NOTE | 2024-08-15 21:37 | CT_ITS ---
PROCEDURE INFORMATION: Exam: CT Abdomen And Pelvis With Contrast Exam date and time: 08/15/2024 9:50 PM Age: 39 years old Clinical indication: Abdominal pain; Additional info: Epigastric pain, alcohol use disorder TECHNIQUE: Imaging protocol: Computed tomography of the abdomen and pelvis with contrast. Radiation optimization: All CT scans at this facility use at least one of these dose optimization techniques: automated exposure control; mA and/or kV adjustment per patient size (includes targeted exams where dose is matched to clinical indication); or iterative reconstruction. Contrast material: ISOVUE; Contrast volume: 75 ml; Contrast route: IV; COMPARISON: ABDPELW CT abdomen pelvis w con 02/17/2019 6:09 PM FINDINGS: Lungs: Scattered calcified granulomas. Mild subsegmental atelectasis and/or scarring. Esophagus: Chronic distal esophageal circumferential wall thickening. Liver: Normal. No mass. Gallbladder and biliary ducts: Normal. No calcified stones. No ductal dilation. Pancreas: Normal. No ductal dilation. Spleen: Small calcified granulomas. No splenomegaly. Adrenal glands: Normal. No mass. Kidneys and ureters: Normal. No hydronephrosis. Stomach and bowel: Unremarkable. No obstruction. No mucosal thickening. Appendix: No evidence of appendicitis. Intraperitoneal space: Unremarkable. No free air. No significant fluid collection. Vasculature: Unremarkable. No abdominal aortic aneurysm. Lymph nodes: Small calcified hilar lymph nodes. Urinary bladder: Unremarkable as visualized. Reproductive: Unremarkable as visualized. Bones/joints: Unremarkable. No acute fracture. Soft tissues: Unremarkable. IMPRESSION: 1. No acute findings. 2. Stable chronic findings as above.
--- NOTE | 2024-08-15 21:45 | PC.NURSE ---
Patient left floor with Radiology at 21:44.
[2024-08-15] MEDS: SODIUM CHLORIDE 0.9% 10ML SYR (RAD ONLY) 10 ML IV (21:51)
[2024-08-15] MEDS: IOPAMIDOL-370 (76%);100ML BOTTLE 75 ML IV (21:51)
--- NOTE | 2024-08-15 21:55 | PC.NURSE ---
Patient back on floor from Radiology at 21:55.
[2024-08-15] MEDS: ONDANSETRON 4MG/2ML VIAL 4 MG IV (23:02)
[2024-08-15] MEDS: MORPHINE 4MG/ML SYRINGE 5 MG IV (23:36)
[2024-08-16] VITALS (11 sets, daily range): BP systolic 101–158; BP diastolic 52–93; PULSE 40–94; RESP 14–20; TEMP 36.4–37; O2SAT 96–100; BMI 25.7
--- NOTE | 2024-08-16 05:05 | PC.NURSE ---
Pt. was admitted overnight for c/o epigastric pain, Pt. is alert and orientated x4. Pt. on room air. Pt. c/o epigastric pain that is sharp, spasms. Pt. had a CT of abdomen. When patient returned to room from CT. Pt. got nauseated and had increased sharp pains. Dr. Jessica Garcia was notified. GI cocktail given. to patient. Pt. also medicated with Morphine. Pt. had good pain relief and was able to sleep well. VSS. Personal items and call franco in reach.
[2024-08-16] MEDS: SUCRALFATE 1GM TABLET 1 GM PO ×3 (06:35→16:03)
[2024-08-16 07:14] LABS: Basophils # 0.1 K/mm3 (0-0.2); Basophils % 1.3 % (0.1-2.0); Eosinophils # 0.2 K/mm3 (0.0-0.4); Eosinophils % 4.6 % (0.1-12.0); Hematocrit 38.7 % (42.0-52.0); Hemoglobin 13.5 g/dL (14.1-18.0); Lymphocytes # 1.6 K/mm3 (0.7-4.5); Lymphocytes % 35.7 % (10-50); Mean Corpuscular HGB Conc 34.9 g/dL (31.8-35.4); Mean Corpuscular Hemoglobin 31.3 pg (27.0-31.2); Mean Corpuscular Volume 89.6 fl (80-94); Mean Platelet Volume 10.2 fl (7.4-10.4); Monocytes # 0.3 K/mm3 (0.1-1.0); Monocytes % 7.2 % (1.7-9.3); Neutrophils # 2.4 K/mm3 (1.8-7.8); Platelet Count 211 K/mm3 (142-424); Red Blood Count 4.32 M/mm3 (4.60-6.20); Red Cell Distribution Width 12.2 % (11.5-17.5); White Blood Count 4.6 K/mm3 (4.8-10.8)
[2024-08-16 07:48] LABS: Alanine Aminotransferase 29 U/L (12-78); Alkaline Phosphatase 44 U/L (38-126); Anion Gap 10.2 mEq/L (5-15); Aspartate Amino Transferase 34 U/L (17-59); Bilirubin,Total 0.4 mg/dl (0.2-1.3); Blood Urea Nitrogen 13 mg/dl (9-20); Calcium 8.9 mg/dl (8.4-10.2); Carbon Dioxide 31 mmol/L (22.0-30.0); Chloride 103 mmol/L (98-107); Creatinine Clearance Estimated 106 mL/min (50-200); Estimated Glomerular Filt Rate 75 ml/min (>60); GFR (African American) 91 ML/MIN (>60); Glucose 88 mg/dl (74-100); Magnesium 2.1 mg/dl (1.6-2.3); Potassium 4.2 mmoL/L (3.5-5.1); Sodium 140 mmol/L (136-145)
[2024-08-16 07:51] LABS: INR 0.96 (0.9-1.1); Prothrombin Time 10.6 seconds (9.2-12.1)
[2024-08-16] MEDS: PANTOPRAZOLE 40MG VIAL 40 MG IV (09:13)
--- NOTE | 2024-08-16 14:29 | EXP.ANES.CKL ---
[facility] Disclaimer: The information contained in this section may have been updated after the patient was seen, as this information can be updated by other users. Medical History (Updated 08/15/24 @ 14:39 by Marry Bautista MD) History of COVID-19 Surgical History (Updated 01/14/23 @ 14:23 by LIBRADO Loya) History of colonoscopy History of partial pancreatectomy Family History Mother Colon cancer Social History Smoking Status: Never smoker alcohol intake: current substance use type: denies use current occupational status: employed Travel in the last 8 weeks: None [facility] Anesthesia Checklist Patient Identification Patient Identification: Arm Band Structural Data Admitted From: Inpatient Planned Operative Procedure/s: EGD Consent for Planned Operative Procedure(s) Verified: Yes Verified Documents: Surgical Consent and History and Physical NPO Status Verified Time NPO: 00:00 Additional verifications Anesthesia Reactions: No Airway Assessment Mallampati Score:: Class II C-Spine Mobility Assessed: Yes TMJ Mobility Assessed: Yes Neurological Assessment Level of Consciousness: Awake, Alert and Appropriate Anesthesia Plan Anesthesia Risk discussed: Yes Anesthesia Plan: Verified ASA Class: I Anesthesia Type: MAC
--- NOTE | 2024-08-16 15:18 | P.HP_ITS ---
History of Present Illness *Admission Date: 08/15/24 *Reason for visit:: Epigastric pain/hematemesis *History of present illness: Darius Bryan is a 39-year-old male with no significant medical history who presents with worsening epigastric pain, and an episode of hemoptysis at home. He states he has had epigastric pain for about 3 days. He states he has had this before but never this severe. He also endorses 1-2 episodes hemoptysis at home. Endorses occasional dark/bloody stools, constipation. Patient states he drinks alcohol 4 times a week, several beers at a time. Denies NSAIDs, smoking history. Does have a history of acid reflux that he uses Tums for. Workup in the ED significant for hemoglobin 14.6, BUN 12, with vital signs stable. However, patient continues to have significant epigastric pain and spite of GI cocktail, opioid pain control. GI was consulted by the ED who recommended inpatient EGD. Case discussed with the ED provider and decision was made to admit patient for suspected upper GI bleed. [facility] Disclaimer: The information contained in this section may have been updated after the patient was seen, as this information can be updated by other users. Medical History (Updated 08/16/24 @ 15:18 by David Pearson II, MD) History of COVID-19 Surgical History (Updated 01/14/23 @ 14:23 by LIBRADO Loya) History of colonoscopy History of partial pancreatectomy Family History Mother Colon cancer Social History (Updated 08/16/24 @ 14:30 by Bryant Tierney CRNA) Smoking Status: Never smoker alcohol intake: current substance use type: denies use current occupational status: employed Travel in the last 8 weeks: None Have you lived/traveled outside US in past 30 days?: No Contact w/someone who lives/traveled outside US past 30 days?: No Exposure to someone with infectious disease in past 14 days?: No Do you have a fever (greater than 100.4 F or 38 C)?: No Have you tested positive for COVID-19: No Exposed to someone with COVID-19 in past 14 days?: No Do you have a sore throat?: No Do you have a cough?: No Do you have any weakness?: No Do you have any diarrhea?: No Are you experiencing any unusual bleeding?: No Do you have any muscle aches/pain?: No Do you have any abdominal pain?: Yes Are you experiencing loss of taste or smell?: No Other Medical History Have you received the Flu Vaccine for this season: No Have you received the Pneumonia Vaccine: No Review of Systems Review of Systems Review of systems (narrative): Negative *Cardiovascular Comments: Negative *Gastrointestinal Comments: Negative *Genitourinary Comments: Negative *Musculoskeletal Comments: Negative *Neurologic Comments: Negative Meds Home Medications and Allergies Home Medications ?Medication ?Instructions ?Recorded ?Confirmed ?Type No Known Home Medications 08/16/24 08/16/24 History New Prescriptions to Start Prescriptions: Allergies Allergy/AdvReac Type Severity Reaction Status Date / Time diphenhydramine (From AdvReac Verified 01/14/23 14:23 Benadryl) Exam Data for Last 24 hours Vital signs and Labs for Last 24 Hours: Temp Pulse Resp BP Pulse Ox O2 Del Method O2 Flow Rate 98.1 F 40 L 16 105/59 L 98 Nasal Cannula 5 08/16/24 11:44 08/16/24 12:00 08/16/24 11:44 08/16/24 11:44 08/16/24 11:44 08/16/24 15:13 08/16/24 15:13 Laboratory Results - last 24 hr 08/16/24 06:56: WBC 4.6 L, RBC 4.32 L, Hgb 13.5 L, Hct 38.7 L, MCV 89.6, MCH 31.3 H, MCHC 34.9, RDW 12.2, Plt Count 211, MPV 10.2, Neut % (Auto) 51.0, Lymph % (Auto) 35.7, [place] % (Auto) 7.2, Eos % (Auto) 4.6, Baso % (Auto) 1.3, Neut # (Auto) 2.4, Lymph # (Auto) 1.6, [place] # (Auto) 0.3, Eos # (Auto) 0.2, Baso # (Auto) 0.1, PT 10.6, INR 0.96, Sodium 140, Potassium 4.2, Chloride 103, Carbon Dioxide 31 H, Anion Gap 10.2, BUN 13, Creatinine 1.10, Estimated Creat Clear 106, Estimated GFR 75, Est GFR ( Amer) 91, Glucose 88, Calcium 8.9, Magnesium 2.1, Total Bilirubin 0.4, AST 34, ALT 29, Alkaline Phosphatase 44, Total Protein 6.0 L, Albumin 4.0 D, Globulin 2.0, Albumin/Globulin Ratio 2.0 H I & O for Last 24 hours: Intake & Output 08/13/24 08/14/24 08/15/24 08/16/24 23:59 23:59 23:59 23:59 Output Total 0 / 0 Balance 0 / 0 Weight 180 lb 3 oz 179 lb 14.355 oz *Routine HEENT Exam Head: Present normocephalic Eye: Present EOMI and PERRL ENT: Present mucous membranes moist *Routine Neck Exam Neck: Present supple *Routine Respiratory Exam Respiratory: Present CTA bilaterally *Routine Cardiovascular Exam Cardiovascular: Present RRR *Routine Abdominal Exam Abdominal: Present soft and normoactive bowel sounds; Absent tenderness *Routine Rectal Exam Rectal:: deferred *Routine Genitalia Exam Genitalia:: deferred *Routine Extremities Exam Extremities: Absent cyanosis, clubbing or edema *Routine Skin Exam Skin: Present warm; Absent rash *Routine Neurological Exam Neurological: Present alert and oriented X3 Assessment and Plan *Assessment and plan (1) Epigastric abdominal pain: Status: Acute Category: Medical Code(s): R10.13 - Epigastric pain (2) Hematemesis: Status: Acute Category: Medical Code(s): K92.0 - Hematemesis Plan A/P: 1. Excruciating epigastric pain with hematemesis or hemoptysis is the preprocedural diagnosis. The patient will be anesthetized/sedated using MAC sedation. The patient has been seen and examined. Cardiac and lung assessment prior to the examination is stable. Proceed with planned diagnostic EGD
--- NOTE | 2024-08-16 15:19 | P.PCN_ITS ---
[facility] Procedure Note Date: 08/16/24 Time: 15:26 Procedure Note:: Upper Endoscopy Procedure Report: Esophagogastroduodenoscopy with cold biopsies Endoscopost: David Pearson II, MD Referring Physician: Yusuf Schulz MD Date of Procedure: August 16, 2024 Equipment: Olympus GIF 190 standard upper endoscope Sedation: MAC sedation Indications: Mr. Bryan is a 39-year-old gentleman with intermittent epigastric discomfort/dyspepsia that may last for a couple of minutes and occur every 6 months. Since Wednesday, the patient has had more excruciating epigastric abdominal pain. He was in [facility] visiting his 's family and spit up a little bit of blood. He came to the ED yesterday. A CAT scan was performed and showed some chronic distal esophageal circumferential wall thickening but was otherwise normal. 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 The patient does have some chronic gassiness, bloating and constipation. He does state that the present pain does not radiate. He reports no melena. He has no dysphagia. He reports no use of NSAIDs. Procedure: Prior to the procedure, a history and physical exam was performed, and patient's medications and allergies were reviewed. The risks, benefits and alternatives of the sedation and procedure were discussed with the patient. All questions were answered and informed consent was obtained. The patient was brought to the procedure room. Patient identification and proposed procedure were verified by the physician and the nurse. The patient was placed in a left lateral decubitus position and the scope was passed under direct vision. Throughout the procedure, the patient's blood pressure, pulse, and oxygen saturations were monitored continuously. The upper GI endoscopy was accomplished without difficulty. The patient tolerated the procedure well. Findings: The scope was passed directly into the upper esophagus and advanced to the third portion of the duodenum. The post bulbar duodenum, ampulla and duodenal bulb were normal with normal mucosa and conniventes. The scope was withdrawn through a normal duodenal bulb and pylorus into the stomach. There was some bile reflux with mild linear reactive gastropathy of the antrum. The body and fundus of the stomach were normal. Upon retroflexion there was a 2 cm hiatal hernia. Biopsies were taken from the antrum. The scope was then withdrawn into the esophagus. There was evidence of distal superficial erosion and ulceration consistent with grade C (LA classification) reflux esophagitis. There was also corrugation with minimal furrowing of the distal esophagus and very mildly in the proximal esophagus. Biopsies were taken from the distal and proximal esophagus to rule out reflux versus eosinophilic esophagitis. There was a proximal esophageal inlet patch. The remainder of the esophageal mucosa was normal. Impression: 1. Grade C (LA classification) reflux esophagitis with esophageal corrugation and small 2 cm hiatal hernia 2. Mild linear reactive gastropathy of antrum with bile reflux Plan: I will follow-up the biopsies and initiate Voquezna. I would also consider addition of pancreatic digestive enzymes (Creon) with meals because of the prior pancreatectomy and probable EPI. I will discuss the findings with the patient and family.
--- NOTE | 2024-08-16 16:15 | PC.NURSE ---
Pt NPO most of day for EGD. Pt had no c/o pain during this shift. Pt returned from EGD at 1600. VSS. no c/o pain. Plan to discharge.
--- NOTE | 2024-08-16 16:28 | EXP.DC.SUM ---
General Admission date:: 08/15/24 HPI HPI HPI: Darius Bryan is a 39-year-old male with no significant medical history who presents with worsening epigastric pain, and an episode of hemoptysis at home. He states he has had epigastric pain for about 3 days. He states he has had this before but never this severe. He also endorses 1-2 episodes hemoptysis at home. Endorses occasional dark/bloody stools, constipation. Patient states he drinks alcohol 4 times a week, several beers at a time. Denies NSAIDs, smoking history. Does have a history of acid reflux that he uses Tums for. Workup in the ED significant for hemoglobin 14.6, BUN 12, with vital signs stable. However, patient continues to have significant epigastric pain and spite of GI cocktail, opioid pain control. GI was consulted by the ED who recommended inpatient EGD. Case discussed with the ED provider and decision was made to admit patient for suspected upper GI bleed. Hospital Course Hospital Course Hospital Course: Darius Bryan is a 39-year-old male with no significant medical history who presents with worsening epigastric pain, and an episode of hemoptysis at home. He states he has had epigastric pain for about 3 days. He states he has had this before but never this severe. He also endorses 1-2 episodes hemoptysis at home. Endorses occasional dark/bloody stools, constipation. Patient states he drinks alcohol 4 times a week, several beers at a time. Denies NSAIDs, smoking history. Does have a history of acid reflux that he uses Tums for. Workup in the ED significant for hemoglobin 14.6, BUN 12, with vital signs stable. However, patient continues to have significant epigastric pain and spite of GI cocktail, opioid pain control. GI was consulted by the ED who recommended inpatient EGD. Case discussed with the ED provider and decision was made to admit patient for suspected upper GI bleed. #Epigastric pain #Hemoptysis #Suspected PUD #History of pancreatectomy ? Longstanding history of drinking, 4 times a week several beers. Presented with 3 days of epigastric pain, 2 episodes of hemoptysis. ? Initial hemoglobin 14.6, BUN 12, vital signs all stable at this time. Lipase 113. CT abdomen/pelvis unremarkable for acute findings. ? GI consulted, s/p EGD 08/16/24: grade C (LA classification) reflux esophagitis with esophageal corrugation and small 2 cm hiatal hernia, mild linear reactive gastropathy of antrum with bile reflux. No evidence of active bleeding. GI started Voquezna. They also recommended starting Creon due to history of pancreatectomy, however insurance unfortunately will not cover it at this time. ? No further evidence of bleeding during hospital course. Vital signs stable. ? Discharged with prescription for blood Voquenza. Will follow-up with GI, may need to colonoscopy if persists. Total time spent on discharge: 32 minutes on chart review, counseling, documentation, and direct care with patient. Exam Data for Last 24 hours Vital signs and Labs for Last 24 Hours: Temp Pulse Resp BP Pulse Ox O2 Del Method O2 Flow Rate 97.6 F 93 H 16 107/64 L 96 Room Air 5 08/16/24 15:08/16/24 15:08/16/24 15:08/16/24 15:08/16/24 15:08/16/24 15:08/16/24 15:13 Laboratory Results - last 24 hr 08/16/24 06:56: WBC 4.6 L, RBC 4.32 L, Hgb 13.5 L, Hct 38.7 L, MCV 89.6, MCH 31.3 H, MCHC 34.9, RDW 12.2, Plt Count 211, MPV 10.2, Neut % (Auto) 51.0, Lymph % (Auto) 35.7, [place] % (Auto) 7.2, Eos % (Auto) 4.6, Baso % (Auto) 1.3, Neut # (Auto) 2.4, Lymph # (Auto) 1.6, [place] # (Auto) 0.3, Eos # (Auto) 0.2, Baso # (Auto) 0.1, PT 10.6, INR 0.96, Sodium 140, Potassium 4.2, Chloride 103, Carbon Dioxide 31 H, Anion Gap 10.2, BUN 13, Creatinine 1.10, Estimated Creat Clear 106, Estimated GFR 75, Est GFR ( Amer) 91, Glucose 88, Calcium 8.9, Magnesium 2.1, Total Bilirubin 0.4, AST 34, ALT 29, Alkaline Phosphatase 44, Total Protein 6.0 L, Albumin 4.0 D, Globulin 2.0, Albumin/Globulin Ratio 2.0 H I & O for Last 24 hours: Intake & Output 08/13/24 08/14/24 08/15/24 08/16/24 23:59 23:59 23:59 23:59 Output Total 0 / 0 Balance 0 / 0 Weight 81.732 kg 81.6 kg Constitutional Constitutional: no acute distress *Routine HEENT Exam Head: Present normocephalic Eye: Present EOMI and PERRL ENT: Present mucous membranes moist *Routine Neck Exam Neck: Present supple; Absent lymphadenopathy *Routine Respiratory Exam Respiratory: Present CTA bilaterally *Routine Cardiovascular Exam Cardiovascular: Present RRR *Routine Abdominal Exam Abdominal: Present soft and normoactive bowel sounds; Absent tenderness *Routine Extremities Exam Extremities: Absent cyanosis, clubbing or edema *Routine Skin Exam Skin: Present warm; Absent rash *Routine Neurological Exam Neurological: Present alert and oriented X3 Results Data Completed and Pending Labs on day of discharge: Labs from last 24 hours 08/16/24 06:56 WBC 4.6 L RBC 4.32 L Hgb 13.5 L Hct 38.7 L MCV 89.6 MCH 31.3 H MCHC 34.9 RDW 12.2 Plt Count 211 MPV 10.2 Neut % (Auto) 51.0 Lymph % (Auto) 35.7 [place] % (Auto) 7.2 Eos % (Auto) 4.6 Baso % (Auto) 1.3 Neut # (Auto) 2.4 Lymph # (Auto) 1.6 [place] # (Auto) 0.3 Eos # (Auto) 0.2 Baso # (Auto) 0.1 PT 10.6 INR 0.96 Sodium 140 Potassium 4.2 Chloride 103 Carbon Dioxide 31 H Anion Gap 10.2 BUN 13 Creatinine 1.10 Estimated Creat Clear 106 Estimated GFR 75 Est GFR ( Amer) 91 Glucose 88 Calcium 8.9 Magnesium 2.1 Total Bilirubin 0.4 AST 34 ALT 29 Alkaline Phosphatase 44 Total Protein 6.0 L Albumin 4.0 D Globulin 2.0 Albumin/Globulin Ratio 2.0 H DS: Diagnosis Discharge Diagnosis (1) Epigastric abdominal pain: Status: Acute Code(s): R10.13 - Epigastric pain (2) Hematemesis: Status: Acute Code(s): K92.0 - Hematemesis Meds Home Medications and Allergies Home Medications ?Medication ?Instructions ?Recorded ?Confirmed ?Type [id number] 1 cap PO TID #90 caps 08/16/24 Rx 36,000-114,000-180,000 unit capsule,delay rel (Creon) lorazepam 1 mg tablet 1 mg PO TID PRN Functional 08/17/24 Rx abdominal pain #15 tabs lorazepam 1 mg tablet 1 mg PO TID PRN Functional 08/17/24 Rx abdominal pain/pylorospasm #15 tabs ondansetron 4 mg disintegrating 4 mg PO DAILY #30 tabs 08/17/24 Rx tablet vonoprazan 20 mg tablet (Voquezna) 20 mg PO DAILY #30 tabs 08/25/24 Rx New Prescriptions to Start Prescriptions: [id number] [Creon] David Pearson II Allergies Allergy/AdvReac Type Severity Reaction Status Date / Time diphenhydramine (From AdvReac Verified 01/14/23 14:23 Benadryl) Discharge Plan Disposition Patient Disposition: Home, Self-Care Condition: Fair Follow up Plan Follow up with: Yusuf Schulz MD [Primary Care Provider] - 08/23/24 11:00 am Prescriptions/Medication Reconciliation: New Creon 36,000-114,000- 180,000 unit capsule,delayed release(DR/EC) 1 cap PO TID Qty: 90 12RF Rx Instructions: administer with meals and/or snacks No Action ondansetron 4 mg tablet,disintegrating 4 mg PO DAILY Qty: 30 0RF Voquezna 20 mg tablet 20 mg PO DAILY Qty: 30 12RF Rx Instructions: Please take 1 tablet p.o. daily lorazepam 1 mg tablet 1 mg PO TID PRN (Reason: Functional abdominal pain) Qty: 15 0RF Rx Instructions: Please take 1/2?1 tablet p.o. 3 times daily as needed abdominal pain over the next 3 to 5 days lorazepam 1 mg tablet 1 mg PO TID PRN (Reason: Functional abdominal pain/pylorospasm) Qty: 15 0RF Rx Instructions: Please take 1/2 tablet to 1 tablet p.o. 3 times daily as needed abdominal pain Problem Reconciliation Problems Reviewed?: Yes Patient Discharge Instructions Patient Instructions: DI for Epigastric Pain Print Language: Luxembourgish Providers Primary Care Provider: Yusuf Schulz Admit Provider: Mychal Oswald Attending Provider: Mychal Oswald
--- NOTE | 2024-08-18 10:32 | SW/DCPLANNER ---
Spoke with patient's on the phone. Patients stated that he is doing okay. Patients stated that she is aware of his upcoming appointment. Patients stated that they were able to picker and packer his new medicine from [facility]. Patients stated that she has no concerns or quesitons at this time. Yemi Chan
== END 2024-08-16 17:12 | disposition home or self-care (01) ==
LOC: ER 15:40 → 2ND 16:24
PROVIDERS: Internal Medicine Gastroenterology; Admitting Provider Student in an Organized Health Care Education/Training Program; Emergency Provider Student in an Organized Health Care Education/Training Program; PCP Family Medicine; Visit Provider Student in an Organized Health Care Education/Training Program
PROC: 0DJ08ZZ Inspection of Upper Intestinal Tract, Via Natural or Artificial Opening Endoscopic (ICD-10-PCS; CPT 43239; principal; 2024-08-16 14:30)
DX: K21.01 Gastro-esophageal reflux disease with esophagitis, with bleeding (principal); R04.2 Hemoptysis; K44.9 Diaphragmatic hernia without obstruction or gangrene; F10.90 Alcohol use, unspecified, uncomplicated; Z90.411 Acquired partial absence of pancreas; Z79.899 Other long term (current) drug therapy
CPT/HCPCS: 43239; 36415; 71045; 74177; 80053; 83690; 83735; 85025; 85610; 86803; 87389; 99285; G0378; J2270; J2405; J7120; Q9967

== ENCOUNTER 2024-08-17 10:09 | Emergency (ER) | payer BC, SELFPAY ==
[2024-08-17] VITALS (10 sets, daily range): BP systolic 105–127; BP diastolic 55–76; PULSE 48–79; RESP 16–18; TEMP 36.7–37.1; O2SAT 97–100; BMI 25.8
[2024-08-17] MEDS: PANTOPRAZOLE 40MG VIAL 40 MG IV (10:30)
--- NOTE | 2024-08-17 10:31 | ECG_ITS ---
APPROVED REPORT Exam: Resting ECG HR:52 bpm ECG Measurements Heart Rate 52 AXES IA 144 P 56 QRSd 89 QRS 57 QT 403 T 56 QTc 384 Conclusion SINUS BRADYCARDIA BORDERLINE ECG UNCONFIRMED REPORT Electronically signed by : Joaquim Durand, 08/21/2024 23:27:56
[2024-08-17 10:46] LABS: Basophils # 0.1 K/mm3 (0-0.2); Eosinophils # 0.1 K/mm3 (0.0-0.4); Eosinophils % 2.2 % (0.1-12.0); Hematocrit 40.4 % (42.0-52.0); Hemoglobin 14.4 g/dL (14.1-18.0); Lymphocytes # 1.1 K/mm3 (0.7-4.5); Lymphocytes % 21.3 % (10-50); Mean Corpuscular HGB Conc 35.6 g/dL (31.8-35.4); Mean Corpuscular Hemoglobin 31.4 pg (27.0-31.2); Mean Corpuscular Volume 88.2 fl (80-94); Mean Platelet Volume 10.6 fl (7.4-10.4); Monocytes # 0.3 K/mm3 (0.1-1.0); Monocytes % 6.5 % (1.7-9.3); Neutrophils # 3.4 K/mm3 (1.8-7.8); Platelet Count 210 K/mm3 (142-424); Red Blood Count 4.58 M/mm3 (4.60-6.20); Red Cell Distribution Width 11.9 % (11.5-17.5); White Blood Count 4.9 K/mm3 (4.8-10.8)
[2024-08-17] MEDS: BELLADONNA ALKALOIDS 60 ML ML PO (10:47)
[2024-08-17 10:49] LABS: Alanine Aminotransferase 31 U/L (12-78); Albumin Level 4.4 g/dl (3.5-5.0); Albumin/Globulin Ratio 2.1 (1.1-1.8); Alkaline Phosphatase 48 U/L (38-126); Anion Gap 9.5 mEq/L (5-15); Aspartate Amino Transferase 31 U/L (17-59); Bilirubin,Total 0.4 mg/dl (0.2-1.3); Blood Urea Nitrogen 13 mg/dl (9-20); Calcium 9.1 mg/dl (8.4-10.2); Carbon Dioxide 29 mmol/L (22.0-30.0); Chloride 105 mmol/L (98-107); Creatinine Clearance Estimated 97 mL/min (50-200); Estimated Glomerular Filt Rate 68 ml/min (>60); GFR (African American) 82 ML/MIN (>60); Globulin 2.1 g/dL (1.3-3.2); Glucose 95 mg/dl (74-100); Lipase 101 U/L (23-300); Potassium 4.5 mmoL/L (3.5-5.1); Sodium 139 mmol/L (136-145); Total Protein,Serum 6.5 g/dl (6.3-8.2)
--- NOTE | 2024-08-17 10:49 | CT_ITS ---
FINAL REPORT TECHNIQUE: After the administration of intravenous contrast, axial images were obtained through the abdomen and pelvis by computed tomography. The study was performed with techniques to keep radiation dose as low as reasonably achievable, (ALARA). Individual dose reduction techniques using automated exposure control or adjustment of mA and/or kV according to the patient's size were employed. CLINICAL HISTORY: abdominal pain and tenderness COMPARISON: 08/16/2024 FINDINGS: Abdomen: There are a few small nodules present in the lung bases bilaterally, some calcified, that likely represent granulomas. The liver parenchyma is homogeneous. The gallbladder is present. The spleen, pancreas, adrenals and kidneys appear unremarkable. The aorta is normal in caliber. There is no free fluid or adenopathy. Pelvis: The appendix is normal in appearance. The urinary bladder is unremarkable. There is no free fluid or adenopathy. IMPRESSION: No acute intra-abdominal process. Reviewed, Interpreted and Dictated by Michael Knutson MD Transcribed by Angeli Krishnamurthy Authenticated and [facility]
[2024-08-17] MEDS: IOPAMIDOL-370 (76%);100ML BOTTLE 75 ML IV (11:03)
[2024-08-17] MEDS: SODIUM CHLORIDE 0.9% 10ML SYR (RAD ONLY) 10 ML IV (11:03)
--- NOTE | 2024-08-17 11:05 | PC.NURSE ---
pt to CT
--- NOTE | 2024-08-17 11:15 | PC.NURSE ---
DR URBANO AT BEDSIDE
[2024-08-17 11:16] LABS: Troponin I < 0.01 ng/ml (0.00-0.034)
--- NOTE | 2024-08-17 11:18 | HMH.EDGENADL ---
Discharge Plan Disposition Patient Disposition: Home, Self-Care Condition: Good Prescriptions Prescriptions: New lorazepam 1 mg tablet 1 mg PO TID PRN (Reason: Functional abdominal pain) Qty: 15 0RF Rx Instructions: Please take 1/2?1 tablet p.o. 3 times daily as needed abdominal pain over the next 3 to 5 days lorazepam 1 mg tablet 1 mg PO TID PRN (Reason: Functional abdominal pain/pylorospasm) Qty: 15 0RF Rx Instructions: Please take 1/2 tablet to 1 tablet p.o. 3 times daily as needed abdominal pain No Action ondansetron 4 mg tablet,disintegrating 4 mg PO DAILY Qty: 30 0RF Voquezna 20 mg tablet 20 mg PO DAILY Qty: 30 12RF Rx Instructions: Please take 1 tablet p.o. daily Creon 36,000-114,000- 180,000 unit capsule,delayed release(DR/EC) 1 cap PO TID Qty: 90 12RF Rx Instructions: administer with meals and/or snacks Referrals Follow up/Referrals: Yusuf Schulz MD [Primary Care Provider] - See instructions Activity Restrictions/Add. Instructions Additional Instructions/Restrictions: You were evaluated in the emergency department today. Dr. Pearson sent in medication for you to take at home. He also recommends magnesium citrate for bowel cleanout. Please follow-up outpatient with him as scheduled. Return to the emergency department for new or worsening symptoms. Clinical Impressions Clinical Impression: Epigastric abdominal pain Instructions Patient Instructions: DI for Acute Abdominal Pain Print Language Print Language: Monegasque Discharge ED Provider: Alphonse Durand General Adult HPI General Chief complaint: Abdominal Pain Stated complaint: stomach pain Time Seen by Provider: 08/17/24 11:14 Mode of Arrival: Ambulatory Source of Information: Patient Limitations: No Limitations Description of Symptoms (Recalled from ER Triage Doc. by RN): epigastric pain. vomiting. denies any blood. had scope on wednesday. see notes History of Present Illness HPI narrative: 39-year-old male presents today with epigastric abdominal pain. States he was recently in the hospital for similar complaints that started with hemoptysis had an endoscopy was found to have gastric ulcers started on multiple medications and sent home. States his pain worsened this morning. Comes in waves and is spasmodic in nature no tenderness. No hemoptysis melena etc. Related Data Previous Rx's ?Medication ?Instructions ?Recorded [id number] 1 cap PO TID #90 caps 08/16/24 36,000-114,000-180,000 unit capsule,delay rel (Creon) vonoprazan 20 mg tablet (Voquezna) 20 mg PO DAILY #30 tabs 08/16/24 lorazepam 1 mg tablet 1 mg PO TID PRN Functional 08/17/24 abdominal pain #15 tabs lorazepam 1 mg tablet 1 mg PO TID PRN Functional 08/17/24 abdominal pain/pylorospasm #15 tabs ondansetron 4 mg disintegrating 4 mg PO DAILY #30 tabs 08/17/24 tablet Allergies Allergy/AdvReac Type Severity Reaction Status Date / Time diphenhydramine (From AdvReac Verified 01/14/23 14:23 Benadryl) [facility] Disclaimer: The information contained in this section may have been updated after the patient was seen, as this information can be updated by other users. Medical History (Updated 08/17/24 @ 15:34 by David Pearson II, MD) History of COVID-19 Surgical History (Updated 01/14/23 @ 14:23 by LIBRADO Loya) History of colonoscopy History of partial pancreatectomy Family History Mother Colon cancer Social History (Updated 08/16/24 @ 14:30 by Bryant Tierney CRNA) Smoking Status: Never smoker alcohol intake: current substance use type: denies use current occupational status: employed Travel in the last 8 weeks: None Have you lived/traveled outside [place] in past 30 days?: No Contact w/someone who lives/traveled outside US past 30 days?: No Exposure to someone with infectious disease in past 14 days?: No Do you have a fever (greater than 100.4 F or 38 C)?: No Have you tested positive for COVID-19: No Exposed to someone with COVID-19 in past 14 days?: No Do you have a sore throat?: No Do you have a cough?: No Do you have any weakness?: No Do you have any diarrhea?: No Are you experiencing any unusual bleeding?: No Do you have any muscle aches/pain?: No Do you have any abdominal pain?: Yes Are you experiencing loss of taste or smell?: No Other Medical History Have you received the Flu Vaccine for this season: No Have you received the Pneumonia Vaccine: No ROS Obtained: Yes All systems reviewed & no additional complaints except as documented Physical Exam General General appearance: alert Respiratory Respiratory exam: Present normal lung sounds bilaterally Cardiovascular Cardiovascular exam: Present regular rate Abdominal Exam Abdominal exam: Present soft and distention; Absent tenderness Neurological Exam Neurological exam: Present oriented X3 Medical Decision Making Medical Records Screening: Per USPSTF and CDC recommendations, given the prevalence of disease in our region, it is our hospital?s policy to screen for HIV and viral Hepatitis for all patients aged 18 and over and those with ongoing risk factors. Shyam Inquiry Pt receiving controlled substance: No Vital Signs: 08/17/24 10:10 08/17/24 10:13 08/17/24 10:30 Temperature 98.7 F Temperature Source Oral Pulse Rate 56 L 54 L Pulse Rate [Right] 55 L Respiratory Rate 18 Blood Pressure 127/66 117/73 Blood Pressure [Right Arm] 127/66 Blood Pressure Mean 86 Blood Pressure Mean [Right Arm] 86 Blood Pressure Source Blood Pressure Position 02 Sat by Pulse Oximetry 99 97 98 Oxygen Delivery Method Room Air Room Air Room Air 08/17/24 11:30 08/17/24 12:00 08/17/24 13:00 Temperature Temperature Source Pulse Rate 56 L 55 L 62 Pulse Rate [Right] Respiratory Rate Blood Pressure 113/55 L 117/76 Blood Pressure [Right Arm] Blood Pressure Mean Blood Pressure Mean [Right Arm] Blood Pressure Source Blood Pressure Position 02 Sat by Pulse Oximetry 100 99 100 Oxygen Delivery Method Room Air Room Air Room Air 08/17/24 14:47 08/17/24 15:00 08/17/24 15:30 Temperature Temperature Source Pulse Rate 48 L 49 L 48 L Pulse Rate [Right] Respiratory Rate Blood Pressure 107/60 L 105/60 L 112/69 Blood Pressure [Right Arm] Blood Pressure Mean Blood Pressure Mean [Right Arm] Blood Pressure Source Blood Pressure Position 02 Sat by Pulse Oximetry 98 97 98 Oxygen Delivery Method Room Air Room Air Room Air 08/17/24 15:56 Temperature 98.0 F Temperature Source Oral Pulse Rate 79 Pulse Rate [Right] Respiratory Rate 16 Blood Pressure 112/69 Blood Pressure [Right Arm] Blood Pressure Mean Blood Pressure Mean [Right Arm] Blood Pressure Source Automatic Cuff Blood Pressure Position Sitting 02 Sat by Pulse Oximetry Oxygen Delivery Method Room Air Lab Data Lab results reviewed: Yes I reviewed the patient's lab results. Lab Results 08/17/24 10:25: WBC 4.9, RBC 4.58 L, Hgb 14.4, Hct 40.4 L, MCV 88.2, MCH 31.4 H, MCHC 35.6 H, RDW 11.9, Plt Count 210, MPV 10.6 H, Neut % (Auto) 69.0, Lymph % (Auto) 21.3, [place] % (Auto) 6.5, Eos % (Auto) 2.2, Baso % (Auto) 1.0, Neut # (Auto) 3.4, Lymph # (Auto) 1.1, [place] # (Auto) 0.3, Eos # (Auto) 0.1, Baso # (Auto) 0.1, Sodium 139, Potassium 4.5, Chloride 105, Carbon Dioxide 29, Anion Gap 9.5, BUN 13, Creatinine 1.20, Estimated Creat Clear 97, Estimated GFR 68, Est GFR ( Amer) 82, Glucose 95, Calcium 9.1, Total Bilirubin 0.4, AST 31, ALT 31, Alkaline Phosphatase 48, Troponin I < 0.01, Total Protein 6.5, Albumin 4.4, Globulin 2.1, Albumin/Globulin Ratio 2.1 H, Lipase 101 08/17/24 10:50: Ammonia 16 08/17/24 10:25 08/17/24 10:25 Orders (Tests/Meds): ED MEDICATIONS Discontinued Medications Generic Name Dose Route Start Last Admin Trade Name Freq PRN Reason Stop Dose Admin Belladonna Alkaloids 60 ml 08/17/24 10:46 08/17/24 10:47 Belladonna Alkaloids 60 Ml Ml PO 08/17/24 10:47 60 ml ONCE ONE Administration Sodium Chloride 1,000 mls @ 999 mls/hr 08/17/24 11:30 08/17/24 11:27 Sod Chlor 0.9% 1000ml Bag IV 08/17/24 12:30 999 mls/hr .Q1H1M GABRIEL Administration Iopamidol 75 ml 08/17/24 11:02 08/17/24 11:03 Iopamidol-370 (76%);100ml Bottle IV 08/17/24 11:03 75 ml ONCE ONE Administration Morphine Sulfate 4 mg 08/17/24 11:19 08/17/24 11:27 Morphine 4mg/Ml Syringe IV 08/17/24 11:20 4 mg ONCE ONE Administration Ondansetron HCl 4 mg 08/17/24 11:19 08/17/24 11:27 Ondansetron 4mg/2ml Vial IV 08/17/24 11:20 4 mg ONCE ONE Administration Pantoprazole Sodium 40 mg 08/17/24 10:26 08/17/24 10:30 Pantoprazole 40mg Vial IV 08/17/24 10:27 40 mg ONCE ONE Administration Sodium Chloride 10 ml 08/17/24 10:26 Sodium Chloride 0.9% 10ml Vial IV 09/16/24 10:25 NEEDED PRN dilute protonix Sodium Chloride 10 ml 08/17/24 11:02 08/17/24 11:03 Sodium Chloride 0.9% 10ml Syr (Rad Only) IV 08/17/24 11:03 10 ml ONCE ONE Administration ORDERS Category Date Time Status CT abdomen pelvis w con Stat Cat Scan 08/17/24 10:49 Completed Ammonia Stat Lab 08/17/24 10:50 Completed Complete Blood Count Auto Diff Stat Lab 08/17/24 10:25 Completed Comprehensive Metabolic Panel Stat Lab 08/17/24 10:25 Completed Lipase Stat Lab 08/17/24 10:25 Completed Troponin I Stat Lab 08/17/24 10:25 Completed Medical Decision Narrative: 39-year-old with above history and physical large concern would be a perforated ulcer given his recent diagnosis. Will escalate pain medicine and see if and get him feeling better. CT scan was performed to rule out any complication from recent endoscopy or complication of his known diagnosis of an ulcer. Other things in the differential would include pancreatitis etc. Reassessment 1:20 PM patient feeling much better however states that he believes that he is can to be unable to tolerate anything by mouth at home given the fact that he has severe postprandial abdominal pain. CT scan was performed which I personally interpreted which shows no evidence of any perforation or acute emergency. Labs otherwise unremarkable specifically no evidence of pancreatitis etc. Thus some of his symptoms are to be expected with gastric ulceration but pain and inability to tolerate p.o. seems to be out of proportion to his normal he also has 3-week outpatient follow-up Dr. Schulz no follow-up with Michel at the moment. I will speak with Dr. Pearson to develop a better outpatient follow-up planner scheduler to see if he wants to keep him for IV fluids and symptomatic control. Dr. Polk saw the patient and recommended outpatient follow-up and prescribed a particular plan for this patient please see his note for further information patient was ultimately discharged with close outpatient follow-up with Dr. Pearson. Critical Care Critical Care Time Critical Care Time: No
[2024-08-17] MEDS: ONDANSETRON 4MG/2ML VIAL 4 MG IV (11:27)
[2024-08-17] MEDS: 0.9 % SODIUM CHLORIDE 1000ML 1,000 ML 999 ML IV (11:27)
[2024-08-17] MEDS: MORPHINE 4MG/ML SYRINGE 4 MG IV (11:27)
[2024-08-17 11:33] LABS: Ammonia 16 umol/L (9-30)
--- NOTE | 2024-08-17 12:48 | PC.NURSE ---
Patient given a blanket
--- NOTE | 2024-08-17 13:11 | PC.NURSE ---
DR URBANO AT BEDSIDE TO UPDATE PT
--- NOTE | 2024-08-17 13:14 | PC.NURSE ---
Dr. Durand at bedside
--- NOTE | 2024-08-17 13:55 | PC.NURSE ---
DR URBANO SPEAKING WITH DR CARCAMO
--- NOTE | 2024-08-17 14:02 | PC.NURSE ---
DR URBANO AT BEDSIDE TO UPDATE PT
--- NOTE | 2024-08-17 14:10 | PC.NURSE ---
per DR.Moore Dr. love is coming down to ER to see patient, pt updated an awaiting till then for dispo decision
--- NOTE | 2024-08-17 15:12 | PC.NURSE ---
Dr Pearson @ bedside
--- NOTE | 2024-08-17 15:26 | EXP.PN ---
Subjective *Date: 08/17/24 *Time: 15:26 Interval history: Patient seen yesterday for acute dyspepsia which had resolved. He re presented today to the ED with severe excruciating abdominal pain, nausea and bilious vomiting. The patient's endoscopy had shown grade C reflux esophagitis (LA classification) with some bile gastropathy. The patient did have the prior distal pancreatectomy. CAT scan of the abdomen today is unremarkable but there is abundant stool in the right colon with increased fecal burden. The patient does have obstipation. Exam Data for Last 24 hours Vital signs and Labs for Last 24 Hours: Temp Pulse Resp BP Pulse Ox O2 Del Method 98.7 F 49 L 18 105/60 L 97 Room Air 08/17/24 10:10 08/17/24 15:00 08/17/24 10:10 08/17/24 15:00 08/17/24 15:00 08/17/24 15:00 Laboratory Results - last 24 hr 08/17/24 10:25: WBC 4.9, RBC 4.58 L, Hgb 14.4, Hct 40.4 L, MCV 88.2, MCH 31.4 H, MCHC 35.6 H, RDW 11.9, Plt Count 210, MPV 10.6 H, Neut % (Auto) 69.0, Lymph % (Auto) 21.3, [place] % (Auto) 6.5, Eos % (Auto) 2.2, Baso % (Auto) 1.0, Neut # (Auto) 3.4, Lymph # (Auto) 1.1, [place] # (Auto) 0.3, Eos # (Auto) 0.1, Baso # (Auto) 0.1, Sodium 139, Potassium 4.5, Chloride 105, Carbon Dioxide 29, Anion Gap 9.5, BUN 13, Creatinine 1.20, Estimated Creat Clear 97, Estimated GFR 68, Est GFR ( Amer) 82, Glucose 95, Calcium 9.1, Total Bilirubin 0.4, AST 31, ALT 31, Alkaline Phosphatase 48, Troponin I < 0.01, Total Protein 6.5, Albumin 4.4, Globulin 2.1, Albumin/Globulin Ratio 2.1 H, Lipase 101 08/17/24 10:50: Ammonia 16 I & O for Last 24 hours: Intake & Output 01/2708/15/24 08/16/24 08/17/24 23:59 23:59 23:59 23:59 Weight 180 lb *Routine Abdominal Exam Abdominal: Present soft Comments: Normoactive bowel sounds, soft, nontender, palpable stool and gas in the lower quadrants Assessment and Plan *Assessment and plan (1) Epigastric abdominal pain: Status: Acute Category: Medical Code(s): R10.13 - Epigastric pain (2) Dyspepsia: Status: Acute Category: Medical Code(s): R10.13 - Epigastric pain Plan 1. Acute dyspepsia?epigastric abdominal pain with bilious vomiting. I do feel that this most likely represents visceral spasm (i.e. pylorospasm) and is in part generated from the bile reflux. The CAT scan is read as normal but he clearly has abundant stool in the right colon with increase fecal burden. A moderate amount of stool in the left colon is normal, but a moderate to large amount of stool in the right colon is frequently a source for abdominal pain and dyspepsia. Even in the setting of normal bowel function, many persons have incomplete bowel evacuation/incomplete defecation. The longer your stool stays in your colon, the more time bacteria have to ferment resulting in more gas formation (ie carbon dioxide, methane, hydrogen, etc.) and bloating. I do feel that this is playing some role with his vessel symptoms. Visceral spasm (pylorospasm) responds better to benzodiazepine over opiates. I am going to call in a small number of lorazepam to be taken over the next 2 to 3 days. I have recommended that the patient do a bowel cleanse with magnesium citrate which should help. I would continue the Voquezna. I did state that he should hold the Creon and resume in the next 1 to 2 weeks once the dyspepsia has resolved.
== END 2024-08-17 15:57 | disposition home or self-care (01) ==
PROVIDERS: Emergency Provider Student in an Organized Health Care Education/Training Program; PCP Family Medicine
DX: R10.13 Epigastric pain (principal); R11.10 Vomiting, unspecified
CPT/HCPCS: 74177; 80053; 82140; 83690; 84484; 85025; 93005; 96361; 96374; 96375; 99285; J2270; J2405; J7030; Q9967